=== PATIENT | male | born 1930 | race Caucasian/White ===

== ENCOUNTER 2018-02-14 09:46 | Inpatient (IN) | payer OTHER ==
[~2018-02-14] VITALS: Ht 175.3 cm; Wt 73.9 kg
--- NOTE | ~2018-02-14 | O ---
[address] [place] [address] OPERATIVE REPORT Name: DANNY STEIN Room #: 430-P [facility] IN M.R.#: [id number] Admission: 02/27/18 Attend Phys: Cole Young MD Discharge: Date of : 34 Report #: [id number] THIS REPORT FOR: //name// CC: Ricky Young DATE OF SERVICE: 02/27/2018 PREOPERATIVE DIAGNOSIS: Right knee medial compartment osteoarthritis. POSTOPERATIVE DIAGNOSIS: Right knee medial compartment osteoarthritis. PROCEDURE: Right medial compartment arthroplasty using Navio robotic school bus driver/teacher assistant. SURGEON: Cole Young MD. BRICK CARRIER: Rachel Brooks PA-C. INDICATIONS FOR BRICK CARRIER: Throughout the case, extensive retraction and manipulation of the knee was required. This was afforded to me by my school bus driver/teacher assistant. ANESTHESIA: LMA with an adductor canal block. IMPLANTS: [employer] Nephew size 5 cobalt chrome Journey unicompartmental femoral component, a size 2 open tibia and a size 8 polyethylene. TOURNIQUET TIME: 74 minutes. ESTIMATED BLOOD LOSS: 25 mL. COMPLICATIONS: None. SPECIMENS: None. CONDITION UPON LEAVING THE OPERATING ROOM: Stable. INDICATION FOR PROCEDURE: The patient is an 87-year-old gentleman with severe medial compartment osteoarthritis. He had failed conservative measures for this and after discussion with him, he elected for right medial compartment knee arthroplasty. DESCRIPTION OF PROCEDURE: Risks, benefits, alternatives, complications were discussed in detail with the patient including but not limited to risk of anesthesia, risk of damage to nerves, arteries, blood vessels, risk for infection, bleeding, risk for continued knee pain and need for reoperation. Informed consent was obtained from the patient. The right knee was [address] [address] OPERATIVE REPORT Name: DANNY STEIN Room #: 430-P ADM IN M.R.#: [id number] Admission: 02/27/18 Attend Phys: Cole Young MD Discharge: Date of : 34 Report #: [id number] appropriately marked in the preoperative holding area. IV Ancef was given for preoperative antibiotics. He was brought to the operating room and placed in the supine position on the operating room table. LMA anesthesia was induced without complication. Tourniquet was placed on the right thigh. Right lower extremity was prepped and draped in normal sterile fashion. Timeout was performed properly identifying the patient and procedure as well as the instrumentation and implants. All in the operating room were in agreement. Right lower extremity was exsanguinated, tourniquet was inflated. Tourniquet time was 74 minutes. Standard medial approach to the medial compartment of the knee was made with 10 blade through the skin. Dissection was taken down sharply to the fascia. Deep flaps were developed medially and laterally. Fresh 10 blade was used to make a medial parapatellar arthrotomy and the knee was inspected. There was severe medial compartment osteoarthritis. Lateral compartment and patellofemoral compartment were well maintained. It was decided to proceed with medial compartment arthroplasty. Reference pins were placed in the femur and the tibia and the knee was then mapped distally and the Navio robotic navigation. Intraoperative plan was made and we sized a size 5 femur and a size 2 tibia. The femoral resection was then made with a Navio bur. After resection of the femoral cut size, the tibial resection was made with a Navio bur. Tibia was rasped to finish the tibial cut and the tibia was sized, found to be a size 2. A size 2 tibial trial was placed and the peg holes were reamed. A size 5 femoral trial was placed and this was trialed with a size 8 polyethylene. Knee was taken through range of motion, found to be stable, found to have good balance in flexion and extension throughout range of motion. After this, trial components were removed. Bony ends were thoroughly irrigated with normal saline. A final size 2 tibia, size 5 femur were cemented in place using standard cementation techniques. While the cement cured, periarticular injection consisting of morphine, ropivacaine, epinephrine and Toradol was placed in the knee joint capsule. After the cement cured, a final size 8 polyethylene was placed. A gram of vancomycin was placed in the joint. Fascia was closed with 0 Vicryl. Tourniquet was deflated. Hemostasis was obtained with Bovie cautery. Skin was closed with 2-0 Vicryl, 3-0 Monocryl. Dermabond and a PAGE dressing was applied. The patient tolerated this procedure well and went to recovery room under care of anesthesia postoperatively. By: [id number] Cole Young MD /nt
[~2018-02-14 09:46] MED LIST: ACETAMINOPHEN-1 EAC1 PO; ASPIR 8181 MG PO; ASPIRIN325 PO; ATORVASTATIN CA40 MG PO; CENTRUM SILVER1 EAC2 PO; NORCO 5-325 TA1 EACH PO; QUINU10 PD PO; SIMVASTATIN40 MG PO; TAMSULOSIN HCL0.4 M1 PO; TESSALON PERLE100 MG PO; TOPROL XL25 MG PO; VALIUM5 MG PO; XARELTO10 MG PO
[2018-02-16] MEDS ORDERED: ASPIR 8181 MG PO (15:45)
[2018-02-16] MEDS ORDERED: CENTRUM SILVER1 EAC4 PO (15:47)
[2018-02-22 13:20] LABS: HEMATOCRIT 36.9 % (42.0-52.0); HEMOGLOBIN 12.5 gm/dL (14.0-18.0); MCH 33.5 pg (26.0-34.0); MCHC 33.9 g/dL (28.0-37.0); MCV 98.9 fL (80.0-100.0); RBC 3.73 mil/uL (4.50-6.00); RDW 13.4 % (10.5-14.5)
[2018-02-22 13:24] LABS: URINE BILIRUBIN NEGATIVE (Negative); URINE BLOOD NEGATIVE (Negative); URINE CLARITY CLEAR; URINE COLOR YELLOW; URINE GLUCOSE-RANDOM* NEGATIVE (Negative); URINE KETONES NEGATIVE (Negative); URINE LEUKOCYTES-REFLEX NEGATIVE (Negative); URINE NITRITE-REFLEX NEGATIVE (Negative); URINE PROTEIN (DIPSTICK) NEGATIVE (Negative); URINE UROBILINOGEN 0.2 E.U./dl (0.2-1.0)
[2018-02-22 13:34] LABS: PROTIME 10.5 Seconds (9.3-11.4)
[2018-02-22 13:53] LABS: ALBUMIN 3.4 g/dL (3.4-5.0); CALCIUM 9.5 mg/dL (8.5-10.1); CREATININE 1.2 mg/dL (0.7-1.3); POTASSIUM 4.3 mmol/L (3.5-5.1)
[2018-02-27 12:37] VITALS: BP 130/58
[2018-02-27 20:21] VITALS: BP 128/52
[2018-02-28 05:25] VITALS: BP 139/69
[2018-02-28 06:29] LABS: HEMATOCRIT 35.1 % (42.0-52.0); HEMOGLOBIN 11.8 gm/dL (14.0-18.0); MCH 33.3 pg (26.0-34.0); MCHC 33.5 g/dL (28.0-37.0); MCV 99.3 fL (80.0-100.0); RBC 3.54 mil/uL (4.50-6.00); RDW 13.1 % (10.5-14.5); WBC 14.3 thou/uL (4.0-11.0)
[2018-02-28 08:00] VITALS: BP 133/593
[2018-02-28] MEDS ORDERED: TRI-BUFFERED A325 M1 PO (08:09)
[2018-02-28] MEDS ORDERED: NEURONTIN 300300 M1 PO (08:09)
[2018-02-28 11:52] VITALS: BP 133/59
[2018-02-28 13:42] VITALS: BP 133/59
[2018-02-28 15:55] VITALS: BP 133/59
== END 2018-02-28 16:23 | disposition home health service (06) | DRG 470 ==
LOC: PRE 09:46 → 4E 02-27 11:21 → TBA 02-27 11:21 → PRE 02-27 11:42 → 4E 02-27 18:03 → ENTRNSPT 02-28 16:00 → EDTRNSPTSTS 02-28 16:02 → 4E 02-28 16:23
PROVIDERS: Orthopaedic Surgery
DX: M17.11 Unilateral primary osteoarthritis, right knee (principal); I10 Essential (primary) hypertension; E78.00 Pure hypercholesterolemia, unspecified; I25.2 Old myocardial infarction; Z98.42 Cataract extraction status, left eye; Z98.41 Cataract extraction status, right eye; Z87.891 Personal history of nicotine dependence; Z79.899 Other long term (current) drug therapy
CPT/HCPCS: 10783; 50010; 50101; 50415; 50954; 51130; 51225; 51771; 53078; 53370; 54118; 56527; 56528; 57095; 57103; 57109; 57110; 57111; 57113; 57180; 62110; 62900; 70005

== ENCOUNTER → 2019-10-03 | Outpatient (CLI) | payer OTHER ==
[~2019-10-03] MED LIST changes: +CENTRUM SILVER1 EAC4 PO; +NEURONTIN 300300 M1 PO; +TRI-BUFFERED A325 M1 PO
== END ==
LOC: SJCVC 13:17
PROVIDERS: ATTEND Internal Medicine Cardiovascular Disease
DX: R94.31 Abnormal electrocardiogram [ECG] [EKG] (principal); I25.10 Atherosclerotic heart disease of native coronary artery without angina pectoris; I49.49 Other premature depolarization; E78.00 Pure hypercholesterolemia, unspecified; I65.23 Occlusion and stenosis of bilateral carotid arteries; I10 Essential (primary) hypertension; Z79.899 Other long term (current) drug therapy

== ENCOUNTER → 2019-11-07 | Outpatient (CLI) | payer OTHER | LOC: SJCVCIMAG 07:27 | PROVIDERS: ATTEND Internal Medicine Cardiovascular Disease | DX: I07.1 Rheumatic tricuspid insufficiency (principal); I25.10 Atherosclerotic heart disease of native coronary artery without angina pectoris ==

== ENCOUNTER → 2020-08-11 | Outpatient (CLI) | payer OTHER | LOC: SJCVC 09:29 | PROVIDERS: ATTEND Internal Medicine Cardiovascular Disease | DX: R94.31 Abnormal electrocardiogram [ECG] [EKG] (principal); I25.10 Atherosclerotic heart disease of native coronary artery without angina pectoris; I10 Essential (primary) hypertension; E78.00 Pure hypercholesterolemia, unspecified; I65.23 Occlusion and stenosis of bilateral carotid arteries; I38 Endocarditis, valve unspecified; E78.5 Hyperlipidemia, unspecified; Z79.82 Long term (current) use of aspirin; Z79.899 Other long term (current) drug therapy; Z72.89 Other problems related to lifestyle ==

== ENCOUNTER → 2021-05-28 | Outpatient (CLI) | payer OTHER | LOC: SJCVC 12:48 → SJCVCIMAG 12:48 | PROVIDERS: ATTEND Internal Medicine Cardiovascular Disease | DX: I08.8 Other rheumatic multiple valve diseases (principal); R94.31 Abnormal electrocardiogram [ECG] [EKG]; I49.3 Ventricular premature depolarization; I25.10 Atherosclerotic heart disease of native coronary artery without angina pectoris; I10 Essential (primary) hypertension; E78.00 Pure hypercholesterolemia, unspecified; I77.9 Disorder of arteries and arterioles, unspecified; E78.5 Hyperlipidemia, unspecified; M79.89 Other specified soft tissue disorders; Z72.89 Other problems related to lifestyle; Z79.82 Long term (current) use of aspirin; Z79.899 Other long term (current) drug therapy; Z95.818 Presence of other cardiac implants and grafts; Z82.49 Family history of ischemic heart disease and other diseases of the circulatory system ==

== ENCOUNTER → 2021-06-10 | Outpatient (CLI) | payer OTHER | LOC: SJCVCIMAG 10:24 | PROVIDERS: ATTEND Nuclear Medicine Nuclear Cardiology | DX: M79.89 Other specified soft tissue disorders (principal); I25.10 Atherosclerotic heart disease of native coronary artery without angina pectoris; I77.9 Disorder of arteries and arterioles, unspecified; E78.00 Pure hypercholesterolemia, unspecified; I10 Essential (primary) hypertension; E78.5 Hyperlipidemia, unspecified; Z95.818 Presence of other cardiac implants and grafts; Z95.1 Presence of aortocoronary bypass graft; M79.604 Pain in right leg; M79.605 Pain in left leg; Z82.49 Family history of ischemic heart disease and other diseases of the circulatory system; Z79.82 Long term (current) use of aspirin; Z79.2 Long term (current) use of antibiotics; Z79.899 Other long term (current) drug therapy; Z95.0 Presence of cardiac pacemaker; Z95.5 Presence of coronary angioplasty implant and graft ==